=== PATIENT | male | born 1965 | race Caucasian/White ===

== ENCOUNTER 2016-12-26 13:27 | Emergency (ER) | payer OTHER ==
[~2016-12-26] VITALS: Ht 172.7 cm; Wt 80.0 kg
[~2016-12-26 13:27] MED LIST: CARB200T16 PO; REST30CA PO
[2016-12-26 13:28] VITALS: BP 128/75; PULSE 62; RESP 20; TEMP 97.8; O2SAT 98
--- NOTE | 2016-12-26 13:39 | PD ---
HPI Chief Complaint: GI Complaint Time Seen by Provider: 13:38 Travel History International Travel<30 days: No Contact w/Intl Traveler<30days: No Traveled to known affect area: No History of Present Illness HPI 51-year-old male came to the emergency room with history of rectal pain for past week and a half. Patient has been taking some [id number] hemorrhoid cream. But says is not working. He had hemorrhoid in the past and they were banded. He thinks it's coming back again. No history of constipation. Vital signs are stable. No history of rectal bleeding. Patient says the pain is worse when he is laying or sitting and better when he stands. [facility] Past Medical History Narrative Medical List of his past medical, social, surgical and family history is reviewed from the nursing note. Cardiovascular Problems: No Genitourinary: No Immune Disorder: No Musculoskeletal: No Neurologic: Yes (SUBDURAL HYGROMA WITH BRAIN SHIFT) Psychiatric: No Reproductive: No Respiratory: No Seizures: Yes Past Surgical History Abdominal Surgery: Yes (HERNIA REPAIR WITH MESH) Appendectomy: Yes Neurologic Surgery: Yes (BRAIN SURGERY X 5) Social History Alcohol Use: Yes (OCCASIONAL) Tobacco Use: Yes (1 PPD) Substance Use: No Allergies-Medications (Allergen,Severity, Reaction): Coded Allergies: No Known Allergies (Verified , 08/05/14) Comments No known drug allergies. Reported Meds & Prescriptions Reported Meds & Active Scripts Active Lidocaine Rectal 5 % Cream 1 Applic RECTAL DAILY PRN Colace (Docusate Sodium) 100 Mg Cap 100 Mg PO BID Anusol-Hc Supp (Hydrocortisone Supp) 25 Mg Supp 25 Mg RECTAL BID Reported Temazepam 30 Mg Cap 30 Mg PO HS PRN Carbamazepine 200 Mg Tab 200 Mg PO BID Narrative Medication List of his home medications reviewed from the nursing note. Review of Systems Except as stated in HPI: all other systems reviewed are Neg Physical Exam Narrative GENERAL: Awake, alert, mild distress SKIN: Warm and dry. HEAD: Atraumatic. Normocephalic. EYES: Pupils equal and round. No scleral icterus. No injection or drainage. ENT: No nasal bleeding or discharge. Mucous membranes pink and moist. NECK: Trachea midline. No JVD. CARDIOVASCULAR: Regular rate and rhythm. No murmur appreciated. RESPIRATORY: No accessory muscle use. Clear to auscultation. Breath sounds equal bilaterally. GASTROINTESTINAL: Abdomen soft, non-tender, nondistended. Hepatic and splenic margins not palpable. Rectal: Patient was put on the elbow position and rectal exam was done. He has multiple hemorrhoids large and small and none of them look thrombosed. No gross bleeding. MUSCULOSKELETAL: No obvious deformities. No clubbing. No cyanosis. No edema. NEUROLOGICAL: Awake and alert. No obvious cranial nerve deficits. Motor grossly within normal limits. Normal speech. PSYCHIATRIC: Appropriate mood and affect; insight and judgment normal. Data Data Last Documented VS Vital Signs Date Time Temp Pulse Resp B/P Pulse Ox O2 Delivery O2 Flow Rate FiO2 12/26/16 13:28 97.8 62 20 128/75 98 Room Air MDM Medical Decision Making Medical Screen Exam Complete: Yes Emergency Medical Condition: Yes Medical Record Reviewed: Yes Differential Diagnosis External hemorrhoid Narrative Course 2 PM patient will be discharged home with instructions and prescription. He is asked to follow up with colorectal surgeon. He knows that and he said he will call tomorrow to make an emergent appointment. Procedures EKG Prior to Arrival: No Diagnosis Primary Impression: Anal pain Additional Impression: External hemorrhoids Referrals: Husam Santamaria MD 1 day Additional Instructions: Please follow-up with the surgeon whose name and number been provided to you. Take the medications as per the prescription direction. Please return to the ER if the symptoms worsen or any other new concerns. Do sitz bath using warm water and 2-3 tablespoonful of Epsom salt and dunking your bottom him 4-5 times a day. Med/Other Pt SpecificInfo: Prescription(s) given Scripts Lidocaine Rectal 5 % Cream1 Applic RECTAL DAILY PRN (PAIN) #1 TUBE Ref 0 Prov:Bret De La Torre MD 12/26/16 Docusate Sodium (Colace)100 Mg [id number] Mg PO BID #60 CAP Ref 0 Prov:Bret De La Torre MD 12/26/16 Hydrocortisone Supp (Anusol-Hc Supp)25 Mg Supp25 Mg RECTAL BID #24 SUPP Prov:Bret De La Torre MD 12/26/16 Disposition: 01 DISCHARGE HOME Condition: Stable Bret De La Torre MD Dec 26, 2016 13:39
[2016-12-26] MEDS ORDERED: TEMA30CA PO (13:48)
[2016-12-26] MEDS ORDERED: CARB200T PO (13:48)
[2016-12-26] MEDS ORDERED: LIDO4CRE5 RECTAL (14:09)
[2016-12-26] MEDS ORDERED: ANUS25SU RECTAL (14:09)
[2016-12-26] MEDS ORDERED: COLA100C3 PO (14:09)
== END 2016-12-26 14:45 | disposition home or self-care (01) ==
LOC: NEPA 13:27
DX: K62.89 Other specified diseases of anus and rectum (principal); K64.4 Residual hemorrhoidal skin tags; F17.200 Nicotine dependence, unspecified, uncomplicated; Z86.69 Personal history of other diseases of the nervous system and sense organs
CPT/HCPCS: 99283